=== PATIENT | female | born 1980 | race African-American/Black ===

== ENCOUNTER 2019-06-11 23:00 | Emergency (ER) | payer MEDICAID, OTHER ==
[~2019-06-11] VITALS: Ht 160 cm; Wt 84.0 kg
[2019-06-12 03:49] LABS: CLARITY URINE CLOUDY (CLEAR); COLOR URINE YELLOW (YELLOW); KETONES URINE TRACE (NEGATIVE); LEUKOCYTE ESTERASE URINE NEGATIVE (NEGATIVE); NITRITE URINE NEGATIVE (NEGATIVE); OCCULT BLOOD URINE 2+ (NEGATIVE); PH URINE 6.5 (4.5-8.0); PROTEIN URINE NEGATIVE (NEGATIVE); SPECIFIC GRAVITY URINE 1.027 (1.005-1.030)
[2019-06-12 05:21] VITALS: BP 123/72
== END 2019-06-12 05:21 | disposition home or self-care (01) ==
LOC: ER 23:00
DX: S40.861A Insect bite (nonvenomous) of right upper arm, initial encounter (principal); S70.362A Insect bite (nonvenomous), left thigh, initial encounter; L03.113 Cellulitis of right upper limb; L03.116 Cellulitis of left lower limb; I10 Essential (primary) hypertension; E05.90 Thyrotoxicosis, unspecified without thyrotoxic crisis or storm; Z98.890 Other specified postprocedural states; W57.XXXA Bitten or stung by nonvenomous insect and other nonvenomous arthropods, initial encounter; Y93.89 Activity, other specified; Y92.89 Other specified places as the place of occurrence of the external cause; Y99.8 Other external cause status
CPT/HCPCS: 81025; 99283